=== PATIENT | male | born 1955 | race Caucasian/White ===

== ENCOUNTER 2016-12-30 11:31 | Emergency (ER) | payer OTHER ==
[~2016-12-30] VITALS: Ht 177.8 cm; Wt 80.0 kg
[2016-12-30 11:58] VITALS: BP 162/81; PULSE 54; RESP 20; TEMP 98.4; O2SAT 99
[2016-12-30 12:21] VITALS: BP 159/76; PULSE 53; RESP 17; O2SAT 100
[2016-12-30] MEDS ORDERED: SODIUM CHLOR 0.9% 1000 ML INJ 1,000 ML IV SCH ×2 (12:22→15:16)
[2016-12-30] MEDS ORDERED: PANTOPRAZOLE SODIUM 40 MG VIAL IVP ONE (12:30)
[2016-12-30] MEDS ORDERED: ONDANSETRON HCL 4 MG/2 ML VIAL IVP ONE ×2 (12:30→15:30)
[2016-12-30] MEDS ORDERED: FAMOTIDINE 20 MG/2 ML VIAL IV PUSH ONE (12:30)
[2016-12-30] MEDS ORDERED: MORPHINE SULFATE 4 MG/ML INJ IV PUSH ONE ×2 (12:30→15:30)
[2016-12-30 12:46] LABS: AUTOMATED NEUTROPHIL # 7.5 TH/MM3 (1.8-7.7); BASOPHIL % 0.2 % (0.0-2.0); HEMATOCRIT 43.1 % (39.0-51.0); HEMO FLAGS DIFF FINAL; LYMPH % 14.8 % (9.0-44.0); LYMPHOCYTE # 1.4 TH/MM3 (1.0-4.8); MEAN CELL VOLUME 88.9 FL (80.0-100.0); MEAN CORPUSCULAR HGB CONC 34.8 % (32.0-36.0); MONO % 5.8 % (0.0-8.0); NEUT % 79.2 % (16.0-70.0); PLATELET COUNT 117 TH/MM3 (150-450); RED BLOOD COUNT 4.85 MIL/MM3 (4.50-5.90); WHITE BLOOD COUNT 9.4 TH/MM3 (4.0-11.0)
[2016-12-30 12:58] LABS: ANION GAP 6 MEQ/L (5-15); AST (GOT) 19 U/L (15-37); BICARBONATE 27.3 MEQ/L (21.0-32.0); BLOOD UREA NITROGEN 12 MG/DL (7-18); CHLORIDE 99 MEQ/L (98-107); GLOMERULAR FILTRATION RATE 91 ML/MIN (>89); POTASSIUM 3.8 MEQ/L (3.5-5.1); SODIUM (NA) 132 MEQ/L (136-145)
[2016-12-30 12:59] LABS: ALT (GPT) 33 U/L (12-78)
[2016-12-30 13:02] LABS: ALKALINE PHOSPHATASE 40 U/L (45-117); TOTAL BILIRUBIN ADULT 0.6 MG/DL (0.2-1.0)
[2016-12-30 13:49] LABS: APTT (PATIENT) 32.2 SEC (24.3-30.1); PROTHROMBIN TIME - PATIENT 10.9 SEC (9.8-11.6)
[2016-12-30 14:12] LABS: BLOOD, URINE SMALL (NEG); COMMENT (UR) CULT NOT INDICATED; CULTURE IF INDICATED CULT NOT INDICATED; GLUCOSE,URINE NEG (NEG); KETONE, URINE 10 mg/dL (NEG); MUCUS URINE FEW /lpf (OCC); NITRITE,URINE NEG (NEG); PH, URINE 6.5 (5.0-8.5); URINE COLOR YELLOW (YELLW/STRAW)
[2016-12-30] MEDS ORDERED: IOHEXOL 350 MG/ML 10 ML VIAL (for RAD DIAG) IV ONE (14:30)
--- NOTE | 2016-12-30 14:58 | PD ---
HPI Chief Complaint: GI Complaint Time Seen by Provider: 14:53 Travel History International Travel<30 days: No Contact w/Intl Traveler<30days: No Traveled to known affect area: No History of Present Illness HPI 61-year-old male that presents to the ED for evaluation of lower abdominal pain with nausea vomiting diarrhea and bloody stool. Per patient is started since last night. Per patient he believes that his story secondary to food poisoning from eating some cold cuts. Per patient he had it yesterday and then the symptoms started during the night. His been throwing up as well. No blood on the vomiting but the family blood in the stool. shows me the blood and the mucousy bowels the patient has had. She denies any recent travel. No camping trips. No other medical issues. Takes no medications for this. Per patient and brought him here is that the pain got more severe. Pain is mainly on the lower abdomen is cramping. Per patient initially was severe 10 out of 10 but it seemed to improve with bowels but he continues to have it. No radiation of the pain. No chest pain or shortness of breath. No fevers chills or sweats. Nobody sick in the house. PFSH Past Medical History Medical History: Denies Significant Hx Diminished Hearing: No ?: Not Past Surgical History Surgical History: No Previous Surgery Social History Alcohol Use: No Tobacco Use: No Substance Use: No Allergies-Medications (Allergen,Severity, Reaction): Coded Allergies: No Known Allergies (Unverified , 12/30/16) Reported Meds & Prescriptions Reported Meds & Active Scripts Active Zofran (Ondansetron HCl) 4 Mg Tab 4 Mg PO Q6HR PRN Lortab (Hydrocodone-Acetaminophen) 5-325 Mg Tab 1 Tab PO Q6H PRN Flagyl (Metronidazole) 500 Mg Tab 500 Mg PO BID 10 Days Review of Systems Except as stated in HPI: all other systems reviewed are Neg Physical Exam Narrative GENERAL: SKIN: Warm and dry. HEAD: Atraumatic. Normocephalic. EYES: Pupils equal and round. No scleral icterus. No injection or drainage. ENT: No nasal bleeding or discharge. Mucous membranes pink and moist. Tongue is midline. No uvula deviation. NECK: Trachea midline. No JVD. CARDIOVASCULAR: Regular rate and rhythm. No murmurs, S3, S4. RESPIRATORY: No accessory muscle use. Clear to auscultation. Breath sounds equal bilaterally. GASTROINTESTINAL: Abdomen soft, tender to palpation on the lower abdomen, nondistended. Hepatic and splenic margins not palpable. MUSCULOSKELETAL: Extremities without clubbing, cyanosis, or edema. No obvious deformities. Full range of motion of the upper and lower extremities bilaterally. Pupils pulses bilaterally. NEUROLOGICAL: Awake and alert. No obvious cranial nerve deficits. Motor grossly within normal limits. Five out of 5 muscle strength in the arms and legs. Normal speech. PSYCHIATRIC: Appropriate mood and affect; insight and judgment normal. Data Data Last Documented VS Vital Signs Date Time Temp Pulse Resp B/P Pulse Ox O2 Delivery O2 Flow Rate FiO2 12/30/16 15:28 52 18 157/84 97 Room Air 12/30/16 11:58 98.4 Orders Complete Blood Count With Diff (12/30/16 11:41) Comprehensive Metabolic Panel (12/30/16 11:41) Urinalysis - C+S If Indicated (12/30/16 11:41) Iv Access Insert/Monitor (12/30/16 11:41) Oximetry (12/30/16 11:41) Lipase (12/30/16 11:41) Lactic Acid (12/30/16 12:22) Prothrombin Time / Inr (Pt) (12/30/16 12:22) Act Partial Throm Time (Ptt) (12/30/16 12:22) Ct Abd/Pel W Iv Contrast(Rout) (12/30/16 12:22) Iv Access Insert/Monitor (12/30/16 12:22) Ecg Monitoring (12/30/16 12:22) Morphine Inj (Morphine Inj) (12/30/16 12:30) Ondansetron Inj (Zofran Inj) (12/30/16 12:30) Pantoprazole Inj (Protonix Inj) (12/30/16 12:30) Sodium Chlor 0.9% 1000 Ml Inj (Ns 1000 M (12/30/16 12:22) Famotidine Inj (Pepcid Inj) (12/30/16 12:30) Iohexol 350 Inj (Omnipaque 350 Inj) (12/30/16 14:30) Morphine Inj (Morphine Inj) (12/30/16 15:30) Ondansetron Inj (Zofran Inj) (12/30/16 15:30) Sodium Chlor 0.9% 1000 Ml Inj (Ns 1000 M (12/30/16 15:16) Labs Laboratory Tests Test 12/30/16 12/30/16 12/30/16 12/30/16 12:28 13:02 13:04 13:40 White Blood Count 9.4 TH/MM3 Red Blood Count 4.85 MIL/MM3 Hemoglobin 15.0 GM/DL Hematocrit 43.1 % Mean Corpuscular Volume 88.9 FL Mean Corpuscular Hemoglobin 31.0 PG Mean Corpuscular Hemoglobin 34.8 % Concent Red Cell Distribution Width 13.0 % Platelet Count 117 TH/MM3 Mean Platelet Volume 10.3 FL Neutrophils (%) (Auto) 79.2 % Lymphocytes (%) (Auto) 14.8 % Monocytes (%) (Auto) 5.8 % Eosinophils (%) (Auto) 0.0 % Basophils (%) (Auto) 0.2 % Neutrophils # (Auto) 7.5 TH/MM3 Lymphocytes # (Auto) 1.4 TH/MM3 Monocytes # (Auto) 0.5 TH/MM3 Eosinophils # (Auto) 0.0 TH/MM3 Basophils # (Auto) 0.0 TH/MM3 CBC Comment DIFF FINAL Differential Comment Sodium Level 132 MEQ/L Potassium Level 3.8 MEQ/L Chloride Level 99 MEQ/L Carbon Dioxide Level 27.3 MEQ/L Anion Gap 6 MEQ/L Blood Urea Nitrogen 12 MG/DL Creatinine 0.86 MG/DL Estimat Glomerular Filtration 91 ML/MIN Rate Random Glucose 109 MG/DL Calcium Level 8.9 MG/DL Total Bilirubin 0.6 MG/DL Aspartate Amino Transf 19 U/L (AST/SGOT) Alanine Aminotransferase 33 U/L (ALT/SGPT) Alkaline Phosphatase 40 U/L Total Protein 7.6 GM/DL Albumin 4.4 GM/DL Lipase 160 U/L Prothrombin Time 10.9 SEC Prothromb Time International 1.0 RATIO Ratio Activated Partial 32.2 SEC Thromboplast Time Lactic Acid Level 1.1 mmol/L Urine Color YELLOW Urine Turbidity CLEAR Urine pH 6.5 Urine Specific [place] 1.016 Urine Protein NEG mg/dL Urine Glucose (UA) NEG mg/dL Urine Ketones 10 mg/dL Urine Occult Blood SMALL Urine Nitrite NEG Urine Bilirubin NEG Urine Urobilinogen LESS THAN 2.0 MG/DL Urine Leukocyte Esterase NEG Urine RBC 19 /hpf Urine WBC 1 /hpf Urine Mucus FEW /lpf Microscopic Urinalysis Comment CULT NOT INDICATED MDM Medical Decision Making Medical Screen Exam Complete: Yes Emergency Medical Condition: Yes Medical Record Reviewed: Yes Interpretation(s) CBC & BMP Diagram 12/30/16 12:28 LFTS and lipase WNL UA negative lactic acid 1.1 CT of abd/pelvis showed no acute disease. mass on liver and lung nodules which radiology recommended non emergent imaging Differential Diagnosis Diverticulitis versus appendicitis versus gastroenteritis versus colitis versus perforated bowel versus acute abdomen versus pancreatitis versus bloody diarrhea Narrative Course 61-year-old male that presents to the ED for evaluation of lower abdominal pain with nausea and vomiting and diarrhea. Patient was properly examined and was found to have signs and symptoms concerning consistent with possible diverticulitis. Patient does have bloody stool and they did show me a picture of the stool that was red. Hemoccult here was done and was positive. Labs and imaging were ordered. Given pain medications and IV antiemetics as well as fluids. Labs and imaging showed no sign of acute disease. Patient feels better after given medications but not completely 100%. Patient will be given at this time another dose of pain medication and antiemetics as well as one more dose of fluids. At this time this appears to be gastroenteritis likely from food poisoning. I will cover with Flagyl for bacterial infection as well as prescription for Lortab and Zofran to help with the discomfort. Patient was told that symptoms should resolve in the next 24-48 hours. He is to come back to the ED for anything worsens. He agrees and understands plan. See ED worsening symptoms. HemaPrompt Point of Care Internal Pos. & Neg. Controls: Passed Fecal Specimen Occult Blood: Positive Diagnosis Primary Impression: Gastroenteritis Patient Instructions: General Instructions Additional Instructions: Take medications as prescribed. Follow-up with PCP. See ED for any worsening symptoms. Do not drink or drive while taking pain medication. Liquid diet until completely better. Med/Other Pt SpecificInfo: Prescription(s) given Scripts Ondansetron (Zofran)4 Mg Tab4 Mg PO Q6HR PRN (NAUSEA OR VOMITING) #20 TAB Ref 0 Prov:Federica Rodriguez MD 12/30/16 Hydrocodone-Acetaminophen (Lortab)5-325 Mg Tab1 Tab PO Q6H PRN (PAIN) #14 TAB Ref 0 Prov:Federica Rodriguez MD 12/30/16 Metronidazole (Flagyl)500 Mg [id number] Mg PO BID 10 Days Ref 0 Prov:Federica Rodriguez MD 12/30/16 Disposition: 01 DISCHARGE HOME Condition: Stable Ken Trujillo Dec 30, 2016 14:57
--- NOTE | 2016-12-30 15:07 | RADRPT ---
EXAM DATE/TIME: 12/30/2016 14:23 [facility] COMPARISON: No previous studies available for comparison. INDICATIONS : Nausea, vomiting and diarrhea. IV CONTRAST: 87 cc Omnipaque 350 (iohexol) IV ORAL CONTRAST: No oral contrast ingested. RADIATION DOSE: 9.52 CTDIvol (mGy) MEDICAL HISTORY : None SURGICAL HISTORY : None. ENCOUNTER: Initial ACUITY: 1 day PAIN SCALE: 6/10 LOCATION: Bilateral lower quadrant Abdomen TECHNIQUE: Volumetric scanning of the abdomen and pelvis was performed. Using automated exposure control and ad justment of the mA and/or kV according to patient size, radiation dose was kept as low as reasonably achievable to obtain optimal diagnostic quality images. DICOM format image data is available electro nically for review and comparison. FINDINGS: Uncomplicated colonic diverticulosis is noted. There is no acute diverticulitis. The appendix is nor mal. No bowel obstruction is noted. There is an enhancing nodule within the posterior aspect of the right lobe of the liver measuring 17 mm which is indeterminate. Outpatient MRI of the abdomen with contrast may be helpful for further characterization of this probably benign finding if clinically in dicated. There is a tiny 7 mm low density lesion within the right lobe near the dome which is also i ndeterminate and also can be re-evaluated on outpatient MRI if clinically indicated. No biliary duct al dilatation is noted. The gallbladder is unremarkable. The spleen is normal. The pancreas is also normal. The adrenal glands are normal bilaterally. The kidneys enhance briskly and demonstrate no ev idence of focal mass or hydronephrosis. The abdominal aorta and inferior vena cava are unremarkable. There is no paraortic, retroperitoneal or mesenteric lymphadenopathy. The prostate gland is mildly prominent. The urinary bladder is unremarkable. No ascites is noted. Mild degenerative changes are noted throughout the lumbar and lower thoracic spine. There are 4 mm non-calcified nodules within both lung bases which are indeterminate. Outpatient CT o f chest would be helpful for further characterization of these nodules if clinically indicated. CONCLUSION: 1. Uncomplicated colonic diverticulosis. 2. 17 mm enhancing nodule within the posterior segment of the right lobe of the liver and 7 mm low de nsity lesion within the dome of the right lobe which are indeterminate but probably benign. Outpatien t MRI of the abdomen with contrast may be helpful for further characterization of these nodules if cl inically indicated. 3. Mildly prominent prostate gland. 4. 4 mm noncalcified nodules within the lung bases bilaterally which are indeterminate. Outpatient C T of the chest may be helpful for further evaluation of these nodules if clinically indicated. 5. Mild degenerative changes involving the lumbar spine and lower thoracic spine. Arnaldo Engel MD on December 30, 2016 at 14:35 Board Certified Radiologist. This report was verified electronically.
[2016-12-30] MEDS ORDERED: METR-1 PO (15:17)
[2016-12-30] MEDS ORDERED: ZOFR4TAB PO (15:17)
[2016-12-30] MEDS ORDERED: HYDR-3533 PO (15:17)
[2016-12-30 15:28] VITALS: BP 157/84; PULSE 52; RESP 18; O2SAT 97
== END 2016-12-30 17:28 | disposition home or self-care (01) ==
LOC: NEPD 11:31
DX: K52.9 Noninfective gastroenteritis and colitis, unspecified (principal); K92.1 Melena
CPT/HCPCS: 74177; 80053; 81001; 83605; 83690; 85025; 85610; 85730; 96374; 96375; 96376; 99285; C9113; J2270; J2405; J7030; Q9967